=== PATIENT | male | born 1995 | race Caucasian/White ===

== ENCOUNTER 2018-05-13 20:24 | Emergency (ER) | payer SELFPAY ==
--- NOTE | 2018-05-13 22:13 | Emergency Department Report ---
History of Present Illness - General Chief Complaint: Overdose Stated Complaint: POSSIBLE OD Time Seen by Provider: 05/13/18 22:11 Source: EMS Mode of arrival: Stretcher Limitations: No Limitations - Related Data Allergies Allergy/AdvReac Type Severity Reaction Status Date / Time No Known Allergies Allergy Unverified 05/30/16 16:06 ED Review of Systems ROS: Stated complaint: POSSIBLE OD Other details as noted in HPI ED Past Medical Hx - Past Medical History Previous Medical History?: No - Surgical History Past Surgical History?: No - Social History Smoking Status: Never Smoker Substance Use Type: Heroin ED Physical Exam - General Limitations: No Limitations ED Course Vital Signs 05/13/18 21:57 Temperature 98.1 F Pulse Rate 81 Respiratory 14 Rate Blood Pressure 98/64 [Left] O2 Sat by Pulse 98 Oximetry Critical care attestation.: If time is entered above; I have spent that time in minutes in the direct care of this critically ill patient, excluding procedure time. ED Disposition Condition: Stable Referrals: PRIMARY CARE [Primary Care Provider] - 3-5 Days
--- NOTE | 2018-05-13 22:16 | Emergency Department Report ---
HPI - General Chief Complaint: Overdose Time Seen by Provider: 05/13/18 22:11 - HPI HPI: 22-year-old male presents to the emergency department by EMS after a call went out for an overdose and unresponsive male. The patient received Narcan in route with EMS and became awake and alert. The patient has been in the emergency department for about one hour and 45 minutes. He admits to doing heroin this evening and says that he does it "sometimes." However currently he is awake and alert and has no complaints and is asking for discharge home. He has a primary care physician in [place] for follow-up. He denies any other past medical history. He denies any concurrent alcohol use. He says that he was using heroin to get high and had no intention to overdose or harm himself. ED Past Medical Hx - Past Medical History Previous Medical History?: No - Surgical History Past Surgical History?: No - Social History Smoking Status: Never Smoker Substance Use Type: Heroin ED Review of Systems ROS: Stated complaint: POSSIBLE OD Other details as noted in HPI Comment: All other systems reviewed and negative Constitutional: denies: chills, fever Eyes: denies: eye pain, eye discharge, vision change ENT: denies: ear pain, throat pain Respiratory: denies: cough, shortness of breath, wheezing Cardiovascular: denies: chest pain, palpitations Gastrointestinal: denies: abdominal pain, nausea, diarrhea Genitourinary: denies: urgency, dysuria Musculoskeletal: denies: back pain, joint swelling, arthralgia Skin: denies: rash, lesions Neurological: denies: headache, weakness, paresthesias Physical Exam - Physical Exam Vital Signs: Vital Signs 05/13/18 21:57 Temperature 98.1 F Pulse Rate 81 Respiratory 14 Rate Blood Pressure 98/64 [Left] O2 Sat by Pulse 98 Oximetry Physical Exam: GENERAL: The patient is well-developed well-nourished. HENT: Normocephalic. Atraumatic. Patient has moist mucous membranes. EYES: Extraocular motions are intact. Pupils equal reactive to light bilaterally. NECK: Supple. Trachea is midline. CHEST/LUNGS: Clear to auscultation. There is no respiratory distress noted. HEART/CARDIOVASCULAR: Regular. There is no tachycardia. There is no murmur. ABDOMEN: Abdomen is soft, nontender. Patient has normal bowel sounds. There is no abdominal distention. SKIN: Skin is warm and dry. NEURO: The patient is awake, alert, and oriented. The patient is cooperative. The patient has no focal neurologic deficits. The patient has normal speech. Cranial nerves II through XII grossly intact. MUSCULOSKELETAL: There is no tenderness or deformity. There is no limitation range of motion. There is no evidence of acute injury. ED Course Vital Signs 05/13/18 21:57 Temperature 98.1 F Pulse Rate 81 Respiratory 14 Rate Blood Pressure 98/64 [Left] O2 Sat by Pulse 98 Oximetry ED Medical Decision Making - Medical Decision Making Patient presented after a heroin overdose and a complete resolution and/or response to the Narcan given in route. Since being in the emergency department , which she has been for almost 2 hours, he has been awake and alert with no complaints. He has no focal, motor or sensory deficits and his cranial nerves are intact. The patient does not appear intoxicated. He is asking for discharge home and appears to have a normal decision-making capacity. Since the patient does not Narcan almost 2 hours ago, its effects have worn off. We discussed staying away from any further illicit drug use. Patient was seen ambulatory upon discharge and appeared stable. - Differential Diagnosis substance abuse/overdose, hypoglycemia, dysrhythmia Critical Care Time: No Critical care attestation.: If time is entered above; I have spent that time in minutes in the direct care of this critically ill patient, excluding procedure time. ED Disposition Clinical Impression: Unresponsive episode Overdose of heroin Qualifiers: Encounter type: initial encounter Injury intent: accidental or unintentional Qualified Code(s): T40.1X1A - Poisoning by heroin, accidental (unintentional), initial encounter Disposition: DC-01 TO HOME OR SELFCARE Is pt being admited?: No Condition: Stable Instructions: Narcotic Abuse (ED) Additional Instructions: Please avoid any further heroin use or any other illicit drugs as they can be detrimental to her health or even kill you. Please follow-up with your primary care physician in the next few days. Return to the emergency department with any concerns or with any acute distress. Referrals: PRIMARY CARE, [Primary Care Provider] - [facility] Time of Disposition: 22:16
[2018-05-13 22:37] VITALS: BP 103/67
== END 2018-05-13 22:28 | disposition home or self-care (01) ==
LOC: ED 20:24
DX: T40.1X1A Poisoning by heroin, accidental (unintentional), initial encounter (principal); Y92.89 Other specified places as the place of occurrence of the external cause; F19.10 Other psychoactive substance abuse, uncomplicated
CPT/HCPCS: 99283